=== PATIENT | female | born 1945 | race Asian ===

== ENCOUNTER → 2017-02-15 | Outpatient (CLI) | payer OTHER ==
[~2017-02-15] MED LIST: CHOLESTEROL MED; DIABETES MED; HTN MED; ZOLOFT
--- NOTE | ~2017-02-15 | MY29 ---
[facility] A Service of [facility] RADIOLOGY TEXT RESULTS PATIENT: CATRACHO SANTANA LOCATION: [facility] : 45 UNIT #: [id number] AGE: [address]: ORIANA JOHNSON SEX: F ORDER DR: [id number] [facility] [address] [place], [place] [address] [id number] O MR#: [id number] Acc #: [id number] NAME: CATRACHO SANTANA : 1945 SEX: F STUDY DATE/TIME: 02/15/2017 9:28 UNIT: [facility] ROOM: STUDY DESCRIPTION: MY RANI SCREENING W/ CAD BILAT Attending Physician: Oriana Johnson M.D. Referring Physician: Oriana Johnson M.D. Primary Care Physician: Oriana Johnson M.D. MEDICAL IMAGING REPORT This report is preliminary unless electronic signature is present EXAM Digital screening mammogram, 02/15/2017, [facility]. HISTORY 71-year-old woman; previous augmentation. No risk elevation. Annual screening. COMPARISON 09/27/2013 with followup diagnostic left breast imaging 10/16/2013, 05/07/2014. Most recent screening 01/28/2015. FINDINGS Digital imaging of each breast was completed, utilizing conventional projections and standard Irvin views. Review includes FDA-approved CAD device. Bilateral subglandular saline implants are stable. Breast parenchyma is predominantly fatty replaced. There are a few benign calcifications noted, left breast. I see no mass. There are no suspicious microcalcifications and no suspicious architectural deformity. IMPRESSION Negative mammogram. Stable subglandular saline implants. Annual screening recommended. Patients over the age of 40 are entered into a reminder system with target due date for the next mammogram. A result letter will also be sent to the patient. BIRADS: 1 Negative Dictated by... Escobar Ambriz M.D. [facility] A Service of [facility] RADIOLOGY TEXT RESULTS PATIENT: CATRACHO SANTANA LOCATION: [facility] : 45 UNIT #: [id number] AGE: [address]: ORIANA JOHNSON SEX: F ORDER DR: THIS IS AN ELECTRONICALLY VERIFIED REPORT Escobar Ambriz M.D. at 02/15/2017 1:57 PM Lee Ann TD: 02/15/2017 11:35 JOB #: [id number] MEDICAL IMAGING REPORT Page 1 of 1 COPY
== END | disposition home or self-care (01) ==
LOC: CWCC 08:56
DX: Z12.31 Encounter for screening mammogram for malignant neoplasm of breast (principal); Z98.82 Breast implant status; Z88.8 Allergy status to other drugs, medicaments and biological substances
CPT/HCPCS: G0202